=== PATIENT | female | born 1955 | race Caucasian/White ===

== ENCOUNTER 2018-02-18 08:39 | Inpatient (IN) | payer OTHER ==
[2018-02-10 14:44] VITALS: BMI 28.8
[~2018-02-18 08:39] MED LIST: DEXAMETHASONE SOD PHOSPHATE 10 MG/ML 1 ML VIAL IV ONE; HEPARIN SODIUM,PORCINE 5,000 UNIT/ML 1 ML VIAL SQ ONE; MIDAZOLAM 2 MG/2 ML VIAL IV PRN; ONDANSETRON 4 MG/2 ML VIAL IVP ONE; SCOPOLAMINE 1.5MG/72HR PATCH TRANSDERM ONE; ceFAZolin IN SWFI 2 GM/20 ML SYRINGE IVP ONE; fentaNYL (PF) 50 MCG/ML 2 ML AMP IV PRN
[2018-02-18 10:25] LABS: Glucose,Whole Blood 117 mg/dL (75-99)
[2018-02-18] MEDS: LACTATED RINGERS 1,000 ML IV SCH (10:31)
[2018-02-18] MEDS ORDERED: LIDOCAINE 1% 20 ML VIAL (10MG/ML) FOR IV START INTRADERMA ONE (10:33)
--- NOTE | 2018-02-18 11:11 | P.GSHP ---
History of Present Illness H&P Date: 02/18/18 CHIEF COMPLAINT: Paraesophageal hiatal hernia with gastroesophageal reflux disease. HISTORY OF PRESENT ILLNESS: The patient is a 63-year-old male who presents with paraesophageal hiatal hernia. She has completed an esophageal manometry including upper endoscopy workup. Now she presents for surgical intervention. PAST MEDICAL HISTORY: Please see list. PAST SURGICAL HISTORY: Please see list. MEDICATIONS: Please see list. ALLERGIES: Please see list. SOCIAL HISTORY: No illicit drug use FAMILY HISTORY: No reports of Crohn disease or ulcerative colitis. REVIEW OF ORGAN SYSTEMS: CONSTITUTIONAL: No reports of fevers or chills. GI: Denies any blood in stools or constipation. PHYSICAL EXAM: VITAL SIGNS: Stable GENERAL: Well-developed pleasant and in no acute distress. HEENT: No scleral icterus. Extraocular movements grossly intact. Moist buccal mucosa. NECK: Supple without lymphadenopathy. CHEST: Unlabored respirations. Equal bilateral excursions. CARDIOVASCULAR: Regular rate and rhythm. Distal 2+ pulses. ABDOMEN: Soft, nondistended. No peritoneal signs. MUSCULOSKELETAL: No clubbing, cyanosis, or edema. SKIN: Well-perfused. Good skin turgor. MANOMETRY: Shows no evidence of achalasia or scleroderma. ASSESSMENT: 1. Diaphragmatic paraesophageal hiatal hernia with severe gastroesophageal reflux disease. PLAN: 1. Recommend proceeding with a robotic paraesophageal hiatal hernia with possible mesh. 2. Benefits and risks of surgical intervention was discussed including possibility of open technique. 3. Inpatient hospitalization recommended of 2 nights 4. DVT prophylaxis. 5. Antibiotic prophylaxis. Past Medical History Past Medical History: Asthma, Diabetes Mellitus, Eye Disorder, GERD/Reflux, Hyperlipidemia, Liver Disease, Sleep Apnea/CPAP/BIPAP Additional Past Medical History / Comment(s): HX POLYPS. NEUROPATHY RT TOES. SEASONAL ALLERGIES, MINOR ALLERGIC ASTHMA. EARLY CATARACTS. ON HTN RX FOR KIDNEY PROTECTION. FATTY LIVER. OSTEOPENIA. USES CPAP. HIATAL HERNIA CURRENTLY. HAS LT GROIN STRAIN - GOING TO PT. History of Any Multi-Drug Resistant Organisms: None Reported Past Surgical History: Appendectomy, Orthopedic Surgery, Tubal Ligation Additional Past Surgical History / Comment(s): BENIGN CYST REMOVED UNDER RT BREAST. EGD. COLONOSCOPY. RT SHOULDER SURG. Past Anesthesia/Blood Transfusion Reactions: No Reported Reaction Smoking Status: Former smoker - Past Family History Father Family Medical History: Cancer Mother Family Medical History: Cancer Medications and Allergies Home Medications Medication Instructions Recorded Confirmed Type Albuterol Inhaler [Ventolin Hfa 2 puff INHALATION DIRECTED PRN 02/28/1602/18 History Inhaler] Albuterol Nebulized [Ventolin 1 applic INHALATION DIRECTED PRN 02/28/1602/18 History Nebulized] Atorvastatin [Lipitor] 10 mg PO DAILY 02/28/16 02/18/18 History Citalopram Hydrobromide [CeleXA] 20 mg PO DAILY 02/28/16 02/18/18 History Fluticasone Nasal [place] [Flonase 1 spr EA NOSTRIL DIRECTED PRN 02/28/1602/18 History Nasal [place]] Lisinopril [Zestril] 5 mg PO QAM 02/28/16 02/18/18 History Loratadine [Claritin] 10 mg PO DIRECTED PRN 02/28/16 02/18/18 History metFORMIN HCL 1,000 mg PO BID 02/28/16 02/18/18 History Multivitamins, Thera [Multivitamin 1 tab PO DAILY 02/10/18 02/18/18 History (formulary)] Naproxen [Naprosyn] 500 mg PO DAILY 02/10/18 02/18/18 History Omeprazole [PriLOSEC] 40 mg PO DAILY 02/10/18 02/18/18 History glipiZIDE [Glucotrol] 5 mg PO AC-BRKFST 02/10/18 02/18/18 History sitaGLIPtin PHOSPHATE [Januvia] 100 mg PO DAILY 02/10/18 02/18/18 History Allergies Allergy/AdvReac Type Severity Reaction Status Date / Time Penicillins Allergy Swelling Verified 02/10/18 14:24 Surgical - Exam Vital Signs Temp Pulse Resp BP Pulse Ox 99.9 F H 67 16 164/89 96 02/18/18 10:09 02/18/18 10:09 02/18/18 10:09 02/18/18 10:09 02/18/18 10:09 Results - Labs Abnormal Lab Results - Last 24 Hours (Table) 02/18/18 Range/Units 10:21 POC Glucose (mg/dL) 117 H (75-99) mg/dL
[2018-02-18] MEDS ORDERED: LIDOCAINE 1% INJ 10MG/ML (20 ML MDV) ONE (11:45)
[2018-02-18] MEDS ORDERED: PROPOFOL 10 MG/ML 20 ML VIAL IV ONE (11:45)
[2018-02-18] MEDS ORDERED: ROCURONIUM BROMIDE 10 MG/ML 10 ML VIAL IV ONE (11:45)
[2018-02-18] MEDS ORDERED: fentaNYL (PF) 50 MCG/ML 2 ML AMP ONE (11:45)
[2018-02-18] MEDS ORDERED: SUCCINYLCHOLINE CHLORIDE 100 MG/5 ML SYR IV ONE (11:45)
[2018-02-18] MEDS ORDERED: MIDAZOLAM 2 MG/2 ML VIAL ONE (11:45)
[2018-02-18] MEDS ORDERED: NEOSTIGMINE 1 MG/ML 10 ML VIAL ONE (11:45)
[2018-02-18] MEDS ORDERED: GLYCOPYRROLATE 0.2 MG/ML 2 ML VIAL ONE (11:45)
[2018-02-18] MEDS ORDERED: BUPIVACAIN-EPI 0.25%-1:200,000 30 ML VIAL SQ ONE (12:19)
[2018-02-18] MEDS ORDERED: LACTATED RINGERS 1,000 ML IV ONE (12:20)
[2018-02-18] MEDS ORDERED: NALOXONE 0.4 MG/ML 1 ML VIAL IV PRN (13:41)
[2018-02-18] MEDS ORDERED: diphenhydrAMINE 50 MG/ML 1 ML VIAL IVP PRN (13:41)
[2018-02-18] MEDS ORDERED: ALBUTEROL INHALER 60 PUFF/8 GM INHALER INHALATION PRN (13:44)
[2018-02-18] MEDS ORDERED: ALBUTEROL NEBULIZED 2.5 MG/3 ML INHALATION PRN (13:44)
--- NOTE | 2018-02-18 13:55 | P.OP ---
Date of Procedure: 02/18/18 Description of Procedure: DESCRIPTION OF PROCEDURE(S): SURGEON: GIA KHALIL MD PREOPERATIVE DIAGNOSES: 1. Gastroesophageal reflux disease. 2. Paraesophageal hiatal hernia, midline. 3. Hyperlipidemia. 4. Diabetes type 2, insulin-dependent 5. Hypertensive heart disease 6. Depressive disorder 7. Asthma 8. Generalized anxiety disorder 9. Obstructive sleep apnea POSTOPERATIVE DIAGNOSES: 1. Gastroesophageal reflux disease. 2. Paraesophageal hiatal hernia, midline. 3. Hyperlipidemia. 4. Diabetes type 2, insulin-dependent 5. Hypertensive heart disease 6. Depressive disorder 7. Asthma 8. Generalized anxiety disorder 9. Obstructive sleep apnea 10. Cirrhosis of the liver OPERATION: 1. Robotic-assisted da Court Xi laparoscopic reduction and repair of paraesophageal hiatal hernia, 4 x 4 cm, with [place] Biopatch A 8 x 8 cm. 2. Intraoperative esophagogastroduodenoscopy 3. Insertion of 58 Fr Bougie, esophageal dilator ANESTHESIA: General with local anesthetic. ESTIMATED BLOOD LOSS: 10 mL SPECIMENS REMOVED: None. COMPLICATIONS: None. FINDINGS: 1. 4 x 4 cm paraesophageal diaphragmatic hiatal hernia with moderate dissection into the mediastinum. 2. [place] Biopatch A onlay mesh placed. 3. Closure of the hiatus consistent with 58-[place]uvian bougie. 4. Hill grade 1+ lower esophageal valve 5. Severe micronodular liver cirrhosis with hepatomegaly 6. Console time 25 minutes INDICATIONS: The patient is a 63-year-old female who presents with regurgitation, gastroesophageal reflux disease poorly controlled despite medications, and a symptomatic diaphragmatic hiatal hernia. Preoperative workup including upper endoscopy demonstrated a Hill grade 4 lower esophageal valve. She completed an esophageal manometry. Given the severity of her symptoms, particularly of her symptomatic diaphragmatic hiatal hernia, she had elected for surgical intervention. Benefits and risks including bleeding, infection, recurrence, dysphagia, injury to the lung, need for further surgery was described at length. Informed consent was obtained. DESCRIPTION: The patient was brought into the operating room and placed in supine position. Preoperatively she had received Lovenox subcutaneously for DVT prophylaxis. After general induction, the abdomen was prepped and draped in standard sterile fashion. The patient had previously voided prior to coming to the operating room. [place] draping was placed along the abdomen. A timeout protocol was confirmed with the surgical team, for which the patient's name, procedure to be performed including DVT prophylaxis with bilateral SCDs, and preoperative antibiotics were also confirmed. A robotic da Court Xi system was prepped and primed. At 15 cm from the xiphoid to just below the umbilicus, proposed port sites were marked with indelible marker along the left axillary line, left mid-clavicular line with each ports were marked 10 cm from each other. A 5 mm 0 degrees laparoscopic trocar entry was performed along the left upper quadrant. The abdomen was insufflated to 15 mmHg pressure she tolerated well. Diagnostic laparoscopy demonstrated no injury to bowel, viscera, or mesentery. The undersurface demonstrated micronodular liver cirrhosis. No injury had occurred to the small bowel or viscera. Next, one 8 mm robotic port was placed along the right upper abdomen. An 8-mm port was were placed along the left lateral abdominal wall. The camera 8-mm port was maintained along the epigastrium via the hernia defect. Another 12 mm port was placed along the left upper abdominal wall after exchanging the 5 mm port. Please note that the ports were placed at least 20 cm away from the target anatomy. Care was taken to check that each robotic arm were safely away from collision with the bed or the patient. At the epigastrium, a median sized Drake liver retractor was placed under direct visualization with the Iron [employer] Specialist placed over the right shoulder of the patient. The additional third robotic arm was placed along the left aspect of the patient. The patient was repositioned in reverse Trendelenburg position at 14-degrees after lowering the bed. The robot was docked above the left side of the patient. Using a grasper for arm 3, a grasper for arm 1, including vessel sealer for arm 2, the robotic system was docked and primed as described. Instruments were interchanged by the assistant product manager. I had sat at the console. The gastrohepatic ligament was cleaved using a vessel sealer. Next, the phrenoesophageal ligament was mobilized and the distal esophagus was mobilized with care of to the bilateral vagi nerves. The left and right crura was identified. A moderate sized midline hiatal hernia was found. Mobilization of the distal to mid esophagus into the mediastinum was performed. Care was taken to avoid any gastrotomy to the incarcerated upper pole of the stomach. The measured defect was consistent with 4 cm axial length and 4 cm in width. After extensive dissection, the distal esophagus at least 2 cm was brought into the abdominal cavity. Once the hiatus and crura was dissected, 2-0 VLOC suture was placed initially with a [id number] suture to reapproximate the diaphragmatic hiatus posteriorly. To buttress the repair, a [place] Biopatch A was prepared along the back table and cut in a booth-hole fashion as to reinforce the repair as an underlay. The mesh was placed along the crural repair and tagged using horizontal mattress sutures using 2-0 VLOC. I went to the head of the bed to perform intraoperative esophagogastroduodenoscopy. An Olympus gastroscope was passed through posterior oropharynx, where the GE junction was found distal to the diaphragmatic hiatus. The intra-abdominal esophageal length obtained during the case was over 2 cm. The stomach was entered. Retroflexion of the scope confirmed a Hill grade 1+ lower esophageal valve. The stomach had been desufflated. No evidence of leaks were found either of the mucosal defects of the esophagus or stomach. The hiatal closure was consistent with a 58 [place]ian bougie as a bougie was passed. This concluded the endoscopic portion of the case. The robot was undocked from the patient. I re-scrubbed into the case. All instruments and pneumoperitoneum were evacuated from the abdominal cavity. Incisions were reapproximated using 4-0 Monocryl in an interrupted subcuticular fashion. The 12-mm port site was oversewn using 0 Vicryl in a Michale Bertrand. Liquid glue was applied to the skin. Local anesthetic was infiltrated in all wounds for postop analgesia. Multiple intra-abdominal films were obtained. At the end of the procedure, needle, sponge, and instrument count was verified correct by the research technician. The patient had tolerated the procedure well and was taken to the postanesthesia unit in stable condition. Intraoperative films were reviewed with the patient's family who was pleased with the level of care.
[2018-02-18] MEDS: 0.9% NACL WITH KCL 20 MEQ/L 1,000 ML IV SCH ×2 (14:50→21:24)
[2018-02-18] MEDS: HYDROmorphone 1 MG/ML 1 ML SYRINGE IVP PRN ×3 (15:57→21:23)
[2018-02-18] MEDS: SIMETHICONE 40 MG/0.6 ML DROPS 2,000 MG/30 ML BOTTLE PO SCH ×2 (17:47→23:51)
[2018-02-18] MEDS: HYOSCYAMINE ORAL DROPS 1.875 MG/15 ML BOTTLE PO SCH ×2 (17:47→23:52)
[2018-02-18] MEDS: DEXAMETHASONE SOD PHOSPHATE 4 MG/ML 1 ML VIAL IV SCH ×2 (17:48→23:54)
[2018-02-18] MEDS: ONDANSETRON 4 MG/2 ML VIAL IVP SCH ×2 (17:48→23:54)
[2018-02-18 18:54] VITALS: RESP 18
[2018-02-18] MEDS: ceFAZolin IN SWFI 2 GM/20 ML SYRINGE IVP SCH (20:54)
[2018-02-18 21:04] LABS: Glucose,Whole Blood 174 mg/dL (75-99)
[2018-02-18] MEDS: INSULIN ASPART 100 UNIT/ML 1 ML 10 ML VIAL SQ SCH (21:07)
[2018-02-19] MEDS: HYDROmorphone 1 MG/ML 1 ML SYRINGE IVP PRN ×2 (00:07→05:03)
[2018-02-19 03:40] LABS: Glucose,Whole Blood 170 mg/dL (75-99)
[2018-02-19] MEDS: INSULIN ASPART 100 UNIT/ML 1 ML 10 ML VIAL SQ SCH ×3 (03:43→14:34)
[2018-02-19] MEDS: ceFAZolin IN SWFI 2 GM/20 ML SYRINGE IVP SCH (03:46)
[2018-02-19] MEDS: 0.9% NACL WITH KCL 20 MEQ/L 1,000 ML IV SCH (03:57)
[2018-02-19] MEDS: HYOSCYAMINE ORAL DROPS 1.875 MG/15 ML BOTTLE PO SCH ×3 (06:09→17:45)
[2018-02-19] MEDS: SIMETHICONE 40 MG/0.6 ML DROPS 2,000 MG/30 ML BOTTLE PO SCH ×3 (06:10→17:45)
[2018-02-19] MEDS: ONDANSETRON 4 MG/2 ML VIAL IVP SCH ×3 (06:11→17:47)
[2018-02-19] MEDS: DEXAMETHASONE SOD PHOSPHATE 4 MG/ML 1 ML VIAL IV SCH ×3 (06:11→17:46)
[2018-02-19] MEDS: LACTATED RINGERS 1,000 ML IV SCH (06:12)
[2018-02-19 06:43] LABS: Basophils % (A) 0 %; Eosinophils % (A) 0 %; HCT 39.7 % (34.0-46.0); Lymphocytes # (A) 1.3 k/uL (1.0-4.8); Lymphocytes % (A) 14 %; MCH 31.1 pg (25.0-35.0); MCHC 32.8 g/dL (31.0-37.0); MCV 94.8 fL (80.0-100.0); Mean Platelet Volume 7.2; Monocytes # (A) 0.3 k/uL (0-1.0); Monocytes % (A) 3 %; Neutrophils # (A) 7.9 k/uL (1.3-7.7); Neutrophils % (A) 82 %; Platelet Count 227 k/uL (150-450); RBC 4.19 m/uL (3.80-5.40); RDW 12.3 % (11.5-15.5); WBC 9.6 k/uL (3.8-10.6)
[2018-02-19 06:59] LABS: Anion Gap 10 mmol/L; Blood Urea Nitrogen 8 mg/dL (7-17); Calcium 9.4 mg/dL (8.4-10.2); Carbon Dioxide 29 mmol/L (22-30); Chloride 102 mmol/L (98-107); Magnesium 1.7 mg/dL (1.6-2.3); Phosphorus 3.1 mg/dL (2.5-4.5); Potassium 4.5 mmol/L (3.5-5.1); Sodium 141 mmol/L (137-145)
[2018-02-19] MEDS ORDERED: 0.9% NACL WITH KCL 20 MEQ/L 1,000 ML IV SCH (08:00)
--- NOTE | 2018-02-19 08:18 | P.DS ---
Providers Date of admission: 02/18/18 08:39 Expected date of discharge: 02/19/18 Attending physician: Danna Villalobos Primary care physician: Darya Gibbs - Discharge Diagnosis(es) (1) Paraesophageal hiatal hernia Current Visit: Yes Status: Acute (2) Gastroesophageal reflux disease Current Visit: Yes Status: Acute (3) Diabetes type 2, uncontrolled Current Visit: Yes Status: Acute (4) Cirrhosis of liver Current Visit: Yes Status: Acute (5) Fatty liver disease, nonalcoholic Current Visit: Yes Status: Acute (6) Hypertensive heart disease Current Visit: Yes Status: Acute (7) Depressive disorder Current Visit: Yes Status: Acute (8) Hyperlipidemia Current Visit: Yes Status: Acute Hospital Course: PREOPERATIVE DIAGNOSES: 1. Gastroesophageal reflux disease. 2. Paraesophageal hiatal hernia, midline. 3. Hyperlipidemia. 4. Diabetes type 2, insulin-dependent 5. Hypertensive heart disease 6. Depressive disorder 7. Asthma 8. Generalized anxiety disorder 9. Obstructive sleep apnea POSTOPERATIVE DIAGNOSES: 1. Gastroesophageal reflux disease. 2. Paraesophageal hiatal hernia, midline. 3. Hyperlipidemia. 4. Diabetes type 2, insulin-dependent 5. Hypertensive heart disease 6. Depressive disorder 7. Asthma 8. Generalized anxiety disorder 9. Obstructive sleep apnea 10. Cirrhosis of the liver COURSE: The patient is a 63-year-old female who presents with regurgitation, gastroesophageal reflux disease poorly controlled despite medications, and a symptomatic diaphragmatic hiatal hernia. Preoperative workup including upper endoscopy demonstrated a Hill grade 4 lower esophageal valve. She completed an esophageal manometry. Given the severity of her symptoms, particularly of her symptomatic diaphragmatic hiatal hernia, she had elected for surgical intervention. Benefits and risks including bleeding, infection, recurrence, dysphagia, injury to the lung, need for further surgery was described at length. Informed consent was obtained. Postprocedure, patient was doing well. Pain was controlled. No reports of nausea. She was hemodynamically stable. Intraoperative findings including cirrhosis of the liver were reviewed. Dietary changes including avoidance of alcohol and high carbohydrate advised. Patient advised to avoid carbonation including straws. Liquid diet only reviewed. Patient clinically stable for discharge pending completion of esophagram. Follow-up in the office 5 days. Pertinent Studies: Esophagram Procedures: OPERATION: 1. Robotic-assisted da Court Xi laparoscopic reduction and repair of paraesophageal hiatal hernia, 4 x 4 cm, with [place] Biopatch A 8 x 8 cm. 2. Intraoperative esophagogastroduodenoscopy 3. Insertion of 58 Fr Bougie, esophageal dilator ANESTHESIA: General with local anesthetic. ESTIMATED BLOOD LOSS: 10 mL SPECIMENS REMOVED: None. COMPLICATIONS: None. FINDINGS: 1. 4 x 4 cm paraesophageal diaphragmatic hiatal hernia with moderate dissection into the mediastinum. 2. [place] Biopatch A onlay mesh placed. 3. Closure of the hiatus consistent with 58-[place]aroese bougie. 4. Hill grade 1+ lower esophageal valve 5. Severe micronodular liver cirrhosis with hepatomegaly 6. Console time 25 minutes Patient Condition at Discharge: Stable Plan - Discharge Summary Discharge Rx Participant: Yes New Discharge Prescriptions: New Bisacodyl [Dulcolax] 5 mg PO DAILY PRN #10 tablet.dr PRN Reason: Constipation Ondansetron Odt [Zofran Odt] 4 mg PO Q8HR PRN #9 tab PRN Reason: Nausea Simethicone 40 mg/0.6 ml Drops [Mylicon Drops] 40 mg PO PCHS PRN #30 ml PRN Reason: Gas HYDROcodone/APAP [[place] 7.5-325Mg/15Ml] 15 ml PO Q6H PRN #180 solution PRN Reason: Pain Continue metFORMIN HCL 1,000 mg PO BID Loratadine [Claritin] 10 mg PO DAILY PRN PRN Reason: allergies Lisinopril [Zestril] 5 mg PO QAM Fluticasone Nasal [place] [Flonase Nasal [place]] 1 spr EA NOSTRIL DAILY PRN PRN Reason: allergies Citalopram Hydrobromide [CeleXA] 20 mg PO DAILY Atorvastatin [Lipitor] 10 mg PO DAILY Albuterol Nebulized [Ventolin Nebulized] 2.5 mg INHALATION RT-Q4H PRN PRN Reason: Shortness Of Breath Albuterol Inhaler [Ventolin Hfa Inhaler] 2 puff INHALATION RT-Q6H PRN PRN Reason: Shortness Of Breath glipiZIDE [Glucotrol] 5 mg PO AC-BRKFST Multivitamins, Thera [Multivitamin (formulary)] 1 tab PO DAILY Naproxen [Naprosyn] 500 mg PO DAILY sitaGLIPtin PHOSPHATE [Januvia] 100 mg PO DAILY Discontinued Omeprazole [PriLOSEC] 40 mg PO DAILY Discharge Medication List Albuterol Inhaler [Ventolin Hfa Inhaler] 2 puff INHALATION RT-Q6H PRN 02/28/16 [ History] Albuterol Nebulized [Ventolin Nebulized] 2.5 mg INHALATION RT-Q4H PRN 02/28/16 [ History] Atorvastatin [Lipitor] 10 mg PO DAILY 02/28/16 [History] Citalopram Hydrobromide [CeleXA] 20 mg PO DAILY 02/28/16 [History] Fluticasone Nasal [place] [Flonase Nasal [place]] 1 spr EA NOSTRIL DAILY PRN [History] Lisinopril [Zestril] 5 mg PO QAM 02/28/16 [History] Loratadine [Claritin] 10 mg PO DAILY PRN 02/28/16 [History] metFORMIN HCL 1,000 mg PO BID 02/28/16 [History] Multivitamins, Thera [Multivitamin (formulary)] 1 tab PO DAILY 02/10/18 [History ] Naproxen [Naprosyn] 500 mg PO DAILY 02/10/18 [History] glipiZIDE [Glucotrol] 5 mg PO AC-BRKFST 02/10/18 [History] sitaGLIPtin PHOSPHATE [Januvia] 100 mg PO DAILY 02/10/18 [History] Bisacodyl [Dulcolax] 5 mg PO DAILY PRN #10 tablet. 02/19/18 [Rx] HYDROcodone/APAP [[place] Elixir 7.5-325Mg/15Ml] 15 ml PO Q6H PRN #180 solution [Rx] Ondansetron Odt [Zofran Odt] 4 mg PO Q8HR PRN #9 tab 02/19/18 [Rx] Simethicone 40 mg/0.6 ml Drops [Mylicon Drops] 40 mg PO PCHS PRN #30 ml [Rx] Follow up Appointment(s)/Referral(s): Danna Villalboos MD [STAFF PHYSICIAN] - 02/22/18 10:00 am (MARLETTE...call to confirm time) Patient Instructions/Handouts: Laparoscopic Hiatal Hernia Repair (DC) Activity/Diet/Wound Care/Special Instructions: NO lifting over 4 pounds in 4 weeks. No shower. No bathtub soaks. NO Carbonated beverages. LIQUID DIET ONLY. Follow Lizzie diet per your surgeon's hand out given in the office. Discharge Disposition: HOME SELF-CARE
[2018-02-19 08:48] LABS: Glucose,Whole Blood 148 mg/dL (75-99)
--- NOTE | 2018-02-19 08:52 | FL ---
EXAMINATION TYPE: FL esophagus cervic/pharynx DATE OF EXAM ORDERED: 02/19/2018 8:40 AM HISTORY: Status post Zach fundoplication. COMPARISON: None. FINDINGS: The patient drank contrast with ease. There was prompt egress of contrast from the esophag us into the stomach. There is no extravasation. No significant free air was identified. IMPRESSION: STATUS POST ZACH FUNDOPLICATION.
[2018-02-19] MEDS ORDERED: PANTOPRAZOLE 40 MG/10 ML VIAL IV SCH (09:00)
[2018-02-19] MEDS ORDERED: LISINOPRIL 5 MG TAB PO SCH (09:00)
[2018-02-19] MEDS ORDERED: ENOXAPARIN 40 MG/0.4 ML SYRINGE SQ SCH (09:00)
[2018-02-19] MEDS ORDERED: DEXAMETHASONE SOD PHOSPHATE 10 MG/ML 1 ML VIAL IV STA (10:16)
[2018-02-19] MEDS ORDERED: NAPROXEN 250 MG TAB PO STA (10:17)
[2018-02-19] MEDS: MAGNESIUM SULFATE-D5W PMX 1 GM in DEXTROSE/WATER 1 100ML.BAG IVPB SCH ×3 (10:53→13:10)
[2018-02-19 14:25] VITALS: BP 113/50; PULSE 65; TEMP 97.9
[2018-02-19 14:33] LABS: Glucose,Whole Blood 208 mg/dL (75-99)
[2018-02-19] MEDS ORDERED: NAPROXEN 250 MG TAB PO SCH (16:00)
[2018-02-20] MEDS ORDERED: BISACODYL 5 MG TABLET.DR PO PRN (08:00)
== END 2018-02-19 20:52 | disposition home or self-care (01) | DRG 328 ==
LOC: 2ORMAIN 08:39 → 6PED 13:41
PROVIDERS: ADMIT Surgery Plastic and Reconstructive Surgery; ATTEND Surgery Plastic and Reconstructive Surgery
PROC: 8E0W4CZ Robotic Assisted Procedure of Trunk Region, Percutaneous Endoscopic Approach (ICD-10-PCS; 2018-02-18)
PROC: 0D757ZZ Dilation of Esophagus, Via Natural or Artificial Opening (ICD-10-PCS; 2018-02-18)
PROC: 0DJ08ZZ Inspection of Upper Intestinal Tract, Via Natural or Artificial Opening Endoscopic (ICD-10-PCS; 2018-02-18)
PROC: 0BUT4JZ Supplement Diaphragm with Synthetic Substitute, Percutaneous Endoscopic Approach (ICD-10-PCS; principal; 2018-02-18 10:20)
DX: K44.9 Diaphragmatic hernia without obstruction or gangrene (principal); K21.9 Gastro-esophageal reflux disease without esophagitis; F41.1 Generalized anxiety disorder; G47.33 Obstructive sleep apnea (adult) (pediatric); I11.9 Hypertensive heart disease without heart failure; J45.909 Unspecified asthma, uncomplicated; E78.5 Hyperlipidemia, unspecified; F32.9 Major depressive disorder, single episode, unspecified; K74.60 Unspecified cirrhosis of liver; K76.0 Fatty (change of) liver, not elsewhere classified; M85.80 Other specified disorders of bone density and structure, unspecified site; E11.42 Type 2 diabetes mellitus with diabetic polyneuropathy; H26.9 Unspecified cataract; J30.2 Other seasonal allergic rhinitis; R16.0 Hepatomegaly, not elsewhere classified; Z79.84 Long term (current) use of oral hypoglycemic drugs; Z79.899 Other long term (current) drug therapy; Z87.891 Personal history of nicotine dependence; Z88.0 Allergy status to penicillin; Z90.49 Acquired absence of other specified parts of digestive tract; Z98.51 Tubal ligation status; Z80.9 Family history of malignant neoplasm, unspecified
CPT/HCPCS: 74210; 80051; 82310; 82565; 83735; 84100; 84520; 85025

== ENCOUNTER 2019-04-06 07:33 | Day surgery (SDC) | payer OTHER ==
[2019-04-04 10:27] VITALS: BMI 27.3
[~2019-04-06 07:33] MED LIST changes: -DEXAMETHASONE SOD PHOSPHATE 10 MG/ML 1 ML VIAL IV ONE; -HEPARIN SODIUM,PORCINE 5,000 UNIT/ML 1 ML VIAL SQ ONE; +HYDROmorphone 0.5 MG/0.5 ML SYRINGE IVP PRN; +LACTATED RINGERS 1,000 ML IV SCH; -MIDAZOLAM 2 MG/2 ML VIAL IV PRN; -ONDANSETRON 4 MG/2 ML VIAL IVP ONE; +ONDANSETRON 4 MG/2 ML VIAL IVP PRN; -SCOPOLAMINE 1.5MG/72HR PATCH TRANSDERM ONE; -ceFAZolin IN SWFI 2 GM/20 ML SYRINGE IVP ONE; -fentaNYL (PF) 50 MCG/ML 2 ML AMP IV PRN
[2019-04-06] MEDS ORDERED: LIDOCAINE 1% 20 ML VIAL (10MG/ML) FOR IV START INTRADERMA ONE (07:52)
--- NOTE | 2019-04-06 08:00 | P.GSHP ---
History of Present Illness H&P Date: 04/06/19 CHIEF COMPLAINT: GERD and colon screen HISTORY OF PRESENT ILLNESS: The patient is a 64-year-old female who presents with gastroesophageal reflux disease and need for colon screen. Upper and lower endoscopy were offered for further evaluation and management. PAST MEDICAL HISTORY: Please see list. PAST SURGICAL HISTORY: Please see list. MEDICATIONS: Please see list. ALLERGIES: Please see list. SOCIAL HISTORY: No illicit drug use FAMILY HISTORY: No reports of Crohn disease or ulcerative colitis. REVIEW OF ORGAN SYSTEMS: CONSTITUTIONAL: No reports of fevers or chills. GI: Denies any blood in stools or constipation. PHYSICAL EXAM: VITAL SIGNS: Stable GENERAL: Well-developed pleasant in no acute distress. HEENT: No scleral icterus. Extraocular movements grossly intact. Moist buccal mucosa. NECK: Supple without lymphadenopathy. CHEST: Unlabored respirations. Equal bilateral excursions. CARDIOVASCULAR: Regular rate and rhythm. Distal 2+ pulses. ABDOMEN: Soft, nondistended. MUSCULOSKELETAL: No clubbing, cyanosis, or edema. ASSESSMENT: 1. Gastroesophageal reflux disease 2. Colon screen. PLAN: 1. Recommend proceeding with an upper and lower endoscopy Past Medical History Past Medical History: Asthma, Diabetes Mellitus, Eye Disorder, GERD/Reflux, Hyperlipidemia, Hypertension, Liver Disease, Sleep Apnea/CPAP/BIPAP Additional Past Medical History / Comment(s): HX POLYPS. NEUROPATHY RT TOES. SEASONAL ALLERGIES, MINOR ALLERGIC ASTHMA. EARLY CATARACTS. ON HTN RX FOR KIDNEY PROTECTION. FATTY LIVER. OSTEOPENIA. USES CPAP. History of Any Multi-Drug Resistant Organisms: None Reported Past Surgical History: Appendectomy, Hernia Repair, Orthopedic Surgery, Tubal Ligation Additional Past Surgical History / Comment(s): BENIGN CYST REMOVED UNDER RT BREAST. EGD. COLONOSCOPY. RT SHOULDER SURG. Past Anesthesia/Blood Transfusion Reactions: No Reported Reaction Smoking Status: Former smoker - Past Family History Father Family Medical History: Cancer Mother Family Medical History: Cancer Medications and Allergies Home Medications Medication Instructions Recorded Confirmed Type Albuterol Inhaler [Ventolin Hfa 2 puff INHALATION RT-Q6H PRN 02/28/16 04/04/19 History Inhaler] Albuterol Nebulized [Ventolin 2.5 mg INHALATION RT-Q4H PRN 02/28/16 04/04/19 History Nebulized] Atorvastatin [Lipitor] 10 mg PO DAILY 02/28/16 04/04/19 History Citalopram Hydrobromide [CeleXA] 20 mg PO DAILY 02/28/16 04/04/19 History Fluticasone Nasal [place] [Flonase 1 spr EA NOSTRIL DAILY PRN 02/28/16 04/04/19 History Nasal [place]] Lisinopril [Zestril] 5 mg PO QAM 02/28/16 04/04/19 History Loratadine [Claritin] 10 mg PO DAILY PRN 02/28/16 04/04/19 History metFORMIN HCL 1,000 mg PO BID 02/28/16 04/04/19 History Multivitamins, Thera [Multivitamin 1 tab PO DAILY 02/10/18 04/04/19 History (formulary)] Naproxen [Naprosyn] 500 mg PO DAILY 02/10/18 04/04/19 History glipiZIDE [Glucotrol] 5 mg PO AC-BRKFST 02/10/18 04/04/19 History sitaGLIPtin PHOSPHATE [Januvia] 100 mg PO DAILY 02/10/18 04/04/19 History Ezetimibe [Zetia] 10 mg PO DAILY 04/04/19 04/04/19 History Fluticasone Propion/Salmeterol 1 inhalation PO BID 04/04/19 04/04/19 History [Fluticasone-Salmeterol 250-50] Allergies Allergy/AdvReac Type Severity Reaction Status Date / Time Penicillins Allergy Swelling Verified 04/04/19 10:15
[2019-04-06 08:02] LABS: Glucose,Whole Blood 121 mg/dL (75-99)
[2019-04-06] MEDS ORDERED: PROPOFOL 10 MG/ML 20 ML VIAL IV ONE (08:03)
[2019-04-06] MEDS ORDERED: LIDOCAINE 1% INJ 10MG/ML (20 ML MDV) ONE (08:03)
[2019-04-06 08:06] VITALS: TEMP 97.9
--- NOTE | 2019-04-06 08:18 | P.PCN ---
Date of Procedure: 04/06/19 Description of Procedure: PREOPERATIVE DIAGNOSIS: Gastroesophageal reflux disease. POSTOPERATIVE DIAGNOSIS: Gastritis. Gastroesophageal reflux disease. OPERATION: Esophagogastroduodenoscopy with biopsies along antrum. SURGEON: Danna Villalobos MD ANESTHESIA: MAC. INDICATIONS: The patient is a 64-year-old female who presents with a history of reflux disease. Benefits and risks of the procedure were described. Informed consent was obtained. DESCRIPTION: The patient was brought into the endoscopy suite and laid in the left lateral decubitus position. An Olympus gastroscope was passed along the posterior oropharynx down to the distal esophagus where the squamocolumnar junction was encountered at 40 cm from the incisors. The stomach was entered and no bile reflux was found. Additional findings are listed below. Biopsies with cold forceps were obtained of the antrum. The first through third portion of the duodenum was examined and unremarkable. Retroflexion of the scope confirmed Hill grade 1+ lower esophageal valve. The squamocolumnar junction demonstrated [place] grade A erosive esophagitis. The stomach was desufflated. The patient tolerated the procedure well. FINDINGS: Squamocolumnar junction 40 cm from the incisors. Diaphragmatic hiatus at 40 cm. Hill grade 1+ lower esophageal valve. [place] grade A erosive esophagitis. No active duodenitis. Chronic gastritis RECOMMENDATIONS: Upper endoscopy as needed.
--- NOTE | 2019-04-06 08:35 | P.PN ---
Subjective Progress Note Date: 04/06/19 PREOPERATIVE DIAGNOSIS: Personal history of colon polyps. Colonoscopy screening POSTOPERATIVE DIAGNOSIS: Personal history of colon polyps. Colonoscopy screening Rectal polyp OPERATION: Colonoscopy to the ileocecal valve and appendiceal orifice. Colonoscopy with cold forceps biopsies. SURGEON: Danna Villalobos MD. ANESTHESIA: MAC. INDICATIONS: The patient is a 64-year-old female who presents for colonoscopy screening. Last colonoscopy 5 years ago. Benefits and risks were described and informed consent was obtained. DESCRIPTION OF PROCEDURE: The patient had undergone Suprep. She had been brought into the operating room and laid in the left lateral decubitus position. After adequate intravenous sedation, the rectum was examined with 2% lidocaine jelly. No external hemorrhoids were encountered. The rectal tone was within normal limits. No lesions were palpated in the rectal vault. An Olympus colonoscope was advanced until the ileocecal valve and appendiceal orifice were clearly viewed. The prep was fair with visualization of the mucosal folds. The scope was removed with visualization of each mucosal fold. No scattered diverticulosis was encountered. Rectal polyp was cold forcep biopsy. No evidence of focal colitis was found. Retroflexion of the scope demonstrated no internal hemorrhoids. The colon was desufflated. The patient had tolerated the procedure well. Withdrawal time was over 6 minutes. FINDINGS: Aronchick preparation quality scale 2(1-5) No internal hemorrhoids No external hemorrhoids No arteriovenous malformations No sigmoid diverticulosis Removal of 1 polyp: - Cold forceps biopsy at 10 cm from the anal verge, 4 mm polyp, rectum No focal colitis. RECOMMENDATIONS: Repeat colonoscopy 5 years, 2023 Objective - Vital Signs Vital signs: Vital Signs Temp 97.9 F 04/06/19 07:45 Pulse 61 04/06/19 07:45 Resp 16 04/06/19 07:45 BP 142/68 04/06/19 07:45 Pulse Ox 95 04/06/19 07:45 Intake & Output 04/05/19 04/06/19 04/06/19 18:59 06:59 18:59 Intake Total 50 Balance 50 Weight 82 kg Intake: IV 50 - Labs Labs: Abnormal Lab Results - Last 24 Hours (Table) 04/06/19 Range/Units 08:00 POC Glucose (mg/dL) 121 H (75-99) mg/dL
--- NOTE | 2019-04-06 08:36 | P.PCN ---
Date of Procedure: 04/06/19 Description of Procedure: PREOPERATIVE DIAGNOSIS: Personal history of colon polyps. Colonoscopy screening POSTOPERATIVE DIAGNOSIS: Personal history of colon polyps. Colonoscopy screening Rectal polyp OPERATION: Colonoscopy to the ileocecal valve and appendiceal orifice. Colonoscopy with cold forceps biopsies. SURGEON: Danna Villalobos MD. ANESTHESIA: MAC. INDICATIONS: The patient is a 64-year-old female who presents for colonoscopy screening. Last colonoscopy 5 years ago. Benefits and risks were described and informed consent was obtained. DESCRIPTION OF PROCEDURE: The patient had undergone Suprep. She had been brought into the operating room and laid in the left lateral decubitus position. After adequate intravenous sedation, the rectum was examined with 2% lidocaine jelly. No external hemorrhoids were encountered. The rectal tone was within normal limits. No lesions were palpated in the rectal vault. An Olympus colonoscope was advanced until the ileocecal valve and appendiceal orifice were clearly viewed. The prep was fair with visualization of the mucosal folds. The scope was removed with visualization of each mucosal fold. No scattered diverticulosis was encountered. Rectal polyp was cold forcep biopsy. No evidence of focal colitis was found. Retroflexion of the scope demonstrated no internal hemorrhoids. The colon was desufflated. The patient had tolerated the procedure well. Withdrawal time was over 6 minutes. FINDINGS: Aronchick preparation quality scale 2(1-5) No internal hemorrhoids No external hemorrhoids No arteriovenous malformations No sigmoid diverticulosis Removal of 1 polyp: - Cold forceps biopsy at 10 cm from the anal verge, 4 mm polyp, rectum No focal colitis. RECOMMENDATIONS: Repeat colonoscopy 5 years, 2023 Plan - Discharge Summary Discharge Rx Participant: No New Discharge Prescriptions: No Action metFORMIN HCL 1,000 mg PO BID Loratadine [Claritin] 10 mg PO DAILY PRN PRN Reason: allergies Lisinopril [Zestril] 5 mg PO QAM Fluticasone Nasal [place] [Flonase Nasal [place]] 1 spr EA NOSTRIL DAILY PRN PRN Reason: allergies Citalopram Hydrobromide [CeleXA] 20 mg PO DAILY Atorvastatin [Lipitor] 10 mg PO DAILY Albuterol Nebulized [Ventolin Nebulized] 2.5 mg INHALATION RT-Q4H PRN PRN Reason: Shortness Of Breath Albuterol Inhaler [Ventolin Hfa Inhaler] 2 puff INHALATION RT-Q6H PRN PRN Reason: Shortness Of Breath glipiZIDE [Glucotrol] 5 mg PO AC-BRKFST Multivitamins, Thera [Multivitamin (formulary)] 1 tab PO DAILY Naproxen [Naprosyn] 500 mg PO DAILY sitaGLIPtin PHOSPHATE [Januvia] 100 mg PO DAILY Ezetimibe [Zetia] 10 mg PO DAILY Fluticasone Propion/Salmeterol [Fluticasone-Salmeterol 250-50] 1 inhalation PO BID Discharge Medication List Albuterol Inhaler [Ventolin Hfa Inhaler] 2 puff INHALATION RT-Q6H PRN 02/28/16 [History] Albuterol Nebulized [Ventolin Nebulized] 2.5 mg INHALATION RT-Q4H PRN 02/28/16 [History] Atorvastatin [Lipitor] 10 mg PO DAILY 02/28/16 [History] Citalopram Hydrobromide [CeleXA] 20 mg PO DAILY 02/28/16 [History] Fluticasone Nasal [place] [Flonase Nasal [place]] 1 spr EA NOSTRIL DAILY PRN 02/28/16 [History] Lisinopril [Zestril] 5 mg PO QAM 02/28/16 [History] Loratadine [Claritin] 10 mg PO DAILY PRN 02/28/16 [History] metFORMIN HCL 1,000 mg PO BID 02/28/16 [History] Multivitamins, Thera [Multivitamin (formulary)] 1 tab PO DAILY 02/10/18 [History] Naproxen [Naprosyn] 500 mg PO DAILY 02/10/18 [History] glipiZIDE [Glucotrol] 5 mg PO AC-BRKFST 02/10/18 [History] sitaGLIPtin PHOSPHATE [Januvia] 100 mg PO DAILY 02/10/18 [History] Ezetimibe [Zetia] 10 mg PO DAILY 04/04/19 [History] Fluticasone Propion/Salmeterol [Fluticasone-Salmeterol 250-50] 1 inhalation PO BID 04/04/19 [History] Follow up Appointment(s)/Referral(s): Danna Villalobos MD [STAFF PHYSICIAN] - 04/18/19 Patient Instructions/Handouts: Gastroesophageal Reflux Disease (ED), Colorectal Polyps (GEN) Activity/Diet/Wound Care/Special Instructions: Repeat colonoscopy 5 years, 2023 Discharge Disposition: HOME SELF-CARE
[2019-04-06 08:55] VITALS: BP 116/70; PULSE 58; RESP 17
== END 2019-04-06 09:19 | disposition home or self-care (01) ==
LOC: ORWHC2ENDO 07:33
PROVIDERS: ATTEND Surgery Plastic and Reconstructive Surgery
DX: Z12.11 Encounter for screening for malignant neoplasm of colon (principal); K62.1 Rectal polyp; K29.50 Unspecified chronic gastritis without bleeding; K21.9 Gastro-esophageal reflux disease without esophagitis; K22.10 Ulcer of esophagus without bleeding; J45.909 Unspecified asthma, uncomplicated; E11.36 Type 2 diabetes mellitus with diabetic cataract; E11.42 Type 2 diabetes mellitus with diabetic polyneuropathy; H26.9 Unspecified cataract; E78.5 Hyperlipidemia, unspecified; Z86.010 Personal history of colon polyps; I10 Essential (primary) hypertension; G47.33 Obstructive sleep apnea (adult) (pediatric); Z99.89 Dependence on other enabling machines and devices; Z91.048 Other nonmedicinal substance allergy status; K76.0 Fatty (change of) liver, not elsewhere classified; M85.80 Other specified disorders of bone density and structure, unspecified site; Z98.51 Tubal ligation status; Z87.891 Personal history of nicotine dependence; Z80.9 Family history of malignant neoplasm, unspecified; Z79.84 Long term (current) use of oral hypoglycemic drugs; Z79.1 Long term (current) use of non-steroidal anti-inflammatories (NSAID); Z79.899 Other long term (current) drug therapy; Z88.0 Allergy status to penicillin
CPT/HCPCS: 88305; 45380; 43239; J2001; J2704